=== PATIENT | female | born 1990 | race Caucasian/White ===

== ENCOUNTER 2016-11-26 08:23 | Emergency (ER) | payer MEDICAID, OTHER ==
[2016-11-26 08:45] VITALS: BP 152/77
--- NOTE | 2016-11-26 09:15 | RAD ---
INDICATION: Left rib pain. No trauma. COMPARISON: None TECHNIQUE: Multiple views of the ribs were obtained. FINDINGS: Bones: There is no evidence of acute rib fracture. LUNGS: The lungs are clear. There is no pneumothorax. Pleural spaces: There is no evidence of hemothorax. Other: None IMPRESSION: NO EVIDENCE OF RIB FRACTURE.
--- NOTE | 2016-11-26 09:15 | RAD ---
HISTORY: Left rib pain COMPARISONS: Rib series dated November 26, 2016 VIEWS: 4: Frontal dual-energy and lateral views of the chest. FINDINGS: CARDIOMEDIASTINAL SILHOUETTE: The cardiomediastinal silhouette is normal. LORIE: The lorie are normal. PLEURA: The costophrenic angles are sharp. No pleural abnormalities are noted. LUNG PARENCHYMA: The lungs are clear. ABDOMEN: The upper abdomen is clear. There is no subphrenic gas. BONES AND SOFT TISSUES: No bone or soft tissue abnormalities are noted. OTHER: None. IMPRESSION: NO ACTIVE CARDIOPULMONARY DISEASE.
--- NOTE | 2016-11-26 10:34 | UC ---
UC General HPI - HPI Summary HPI Summary: RIB PAIN UNDER LEFT BREAST AREA. NO KNOWN TRAUMA. TENDER TO TOUCH AND WITH MOVEMENT. NO RECENT TRAVEL. NO LEG/CALF PAIN. NO SHORTNESS OF BREATH. NOT ON CONTROL, NOT SEXUALLY ACTIVE. NO FEVER. NO COUGH. NO ABDOMINAL PAIN. - History of Current Complaint Chief Complaint: UCGeneralIllness Stated Complaint: PAIN IN RIB AREA Time Seen by Provider: 11/26/16 08:35 Hx Obtained From: Patient, Family/Tower Erector Hx Last Menstrual Period: unknown, pt states they are irregular Onset/Duration: Sudden Onset, Lasting Days, Still Present Timing: Intermittent Episodes Lasting: Onset Severity: Mild Current Severity: Mild Pain Intensity: 5 Associated Signs & Symptoms: Negative: Back Pain, Cough, Chest Pain, Diarrhea, Dysuria, Fever, Headache, Syncope, SOB, Vomiting - Allergy/Home Medications Allergies/Adverse Reactions: Allergies Allergy/AdvReac Type Severity Reaction Status Date / Time Azithromycin Allergy Severe cramping,diarrhea,rectal Verified 11/26/16 08:26 [From Zithromax Z-Vineet] bleeding Sulfa Drugs Allergy Severe anaphylactic Verified 11/26/16 08:26 reaction PMH/Surg Hx/FS Hx/Imm Hx Previously Healthy: Yes - Surgical History Surgical History: Yes Surgery Procedure, Year, and Place: oral cyst - Family History Known Family History: Negative: Cardiac Disease, Respiratory Disease - Social History Occupation: Employed Full-time Lives: With Family Alcohol Use: Occasionally Substance Use Type: None Smoking Status (MU): Never Smoked Tobacco Review of Systems Constitutional: Negative Skin: Negative Eyes: Negative ENT: Negative Respiratory: Cough Cardiovascular: Negative Gastrointestinal: Negative Genitourinary: Negative Motor: Negative Neurovascular: Negative Musculoskeletal: Negative Neurological: Negative Psychological: Negative All Other Systems Reviewed And Are Negative: Yes Physical Exam Triage Information Reviewed: Yes Appearance: Well-Appearing, No Pain Distress, Well-Nourished Vital Signs: Initial Vital Signs Temp 97.1 F 11/26/16 08:28 Pulse 101 11/26/16 08:28 Resp 18 11/26/16 08:28 BP 152/77 11/26/16 08:28 Pulse Ox 99 11/26/16 08:28 Vital Signs Reviewed: Yes Eye Exam: Normal ENT Exam: Normal Dental Exam: Normal Neck exam: Normal Neck: Positive: Supple, Nontender, No Lymphadenopathy Respiratory Exam: Normal Respiratory: Positive: Chest non-tender, Lungs clear, Normal breath sounds, No respiratory distress, No accessory muscle use Cardiovascular Exam: Normal Cardiovascular: Positive: RRR, No Murmur, Pulses Normal Abdominal Exam: Normal Abdomen Description: Positive: Nontender Musculoskeletal: Positive: Strength Intact, ROM Intact, No Edema, Other: - PAIN WITH PALPATION OF LEFT RIB MARGIN AND LEFT STERNUM Neurological Exam: Normal Psychological Exam: Normal Skin Exam: Normal Course/Dx - Differential Dx - Multi-Symptom Provider Diagnoses: LEFT RIB SPRAIN/STRAIN Discharge - Discharge Plan Condition: Stable Disposition: HOME Patient Education Materials: Costochondritis (ED) Forms: *Work Release Referrals: Nini Blanchard MD [Primary Care Provider] - Additional Instructions: PLEASE SEEK IMMEDIATE CARE FROM THE EMERGENCY DEPARTMENT IF YOU DEVELOP ANY NEW SYMPTOMS, OR IF CURRENT SYMPTOMS WORSEN. ELEVATED BLOOD PRESSURE: TODAY DURING CLINICAL EVALUATION YOUR BLOOD PRESSURE WAS NOTED TO BE ELEVATED. TODAY IT WAS __152___/___77___; NORMAL BLOOD PRESSURE IS 120/80. PLEASE SET AN APPOINTMENT WITHIN THE NEXT WEEK WITH YOUR PRIMARY CARE PROVIDER (OR PROMPTLY ESTABLISH PRIMARY CARE) REGARDING PROMPT RE- EVALUATION OF THIS CONCERN. HIGH BLOOD PRESSURE IS THE MOST COMMON AND HIGHLY IMPORTANT RISK FACTOR FOR THE FOLLOWING: HEART FAILURE, HEART ATTACK ( MYOCARDIAL INFARCTION), INTRACEREBRAL HEMORRHAGE, ISCHEMIC & NONISCHEMIC STROKES , WELL CHRONIC KIDNEY DISEASE AND END STAGE RENAL DISEASE. PLEASE CONSULT AND DISCUSS MANAGEMENT OF THIS FINDING WITH YOUR PRIMARY CARE PHYSICIAN.
== END 2016-11-26 09:33 | disposition home or self-care (01) ==
LOC: UCEAST 08:23
DX: S23.41XA Sprain of ribs, initial encounter (principal); X58.XXXA Exposure to other specified factors, initial encounter; Y93.9 Activity, unspecified; Y92.9 Unspecified place or not applicable; Z88.1 Allergy status to other antibiotic agents; Z88.0 Allergy status to penicillin
CPT/HCPCS: 71020; 99211; G0463